=== PATIENT | female | born 1965 ===

== ENCOUNTER 2020-10-29 11:50 | Outpatient (RCR) | payer OTHER, SELFPAY ==
[2020-10-29] MEDS: COVID-19 VACC, MRNA(PFIZER)/PF 30 MCG/0.3 ML SYRINGE IM (08:33)
[2020-11-19] MEDS: COVID-19 VACC, MRNA(PFIZER)/PF 30 MCG/0.3 ML SYRINGE IM (08:35)
== END 2021-01-21 23:59 ==
LOC: IMMUN 11:50
PROVIDERS: PCP Family Medicine; Referring Provider Family Medicine; Visit Provider Family Medicine
DX: Z23 Encounter for immunization (principal)
CPT/HCPCS: 0001A; 0002A; 91300